=== PATIENT | male | born 1945 | race Caucasian/White ===

== ENCOUNTER → 2020-05-17 | Outpatient (CLI) | payer MEDICARE ==
[~2020-05-17] VITALS: Ht 165.1 cm; Wt 109.3 kg
[~2020-05-17] MED LIST: REGADENOSON 0.4 MG/5 ML PF SYG IVP SCH
== END | disposition home or self-care (01) ==
LOC: SHCH 08:18
PROVIDERS: ATTEND Internal Medicine Cardiovascular Disease
DX: I25.810 Atherosclerosis of coronary artery bypass graft(s) without angina pectoris (principal); R06.09 Other forms of dyspnea
CPT/HCPCS: 78452; 93017; 96374; A9500 ×2; J2785

== ENCOUNTER → 2023-04-28 | Outpatient (CLI) | payer MEDICARE ==
[2023-04-28 17:02] LABS: THYROID STIMULATING HORMONE 1.59 uIU/mL (0.36-3.74)
== END | disposition home or self-care (01) ==
LOC: LAB 15:12
PROVIDERS: ATTEND Internal Medicine Cardiovascular Disease
DX: I25.10 Atherosclerotic heart disease of native coronary artery without angina pectoris (principal); E78.5 Hyperlipidemia, unspecified; Z95.1 Presence of aortocoronary bypass graft; Z79.82 Long term (current) use of aspirin; Z79.899 Other long term (current) drug therapy
CPT/HCPCS: 36415; 84439; 84443

== ENCOUNTER 2023-08-25 06:53 | Emergency (ER) | payer MEDICARE ==
[2023-08-25 08:24] LABS: HEMATOCRIT 37.6 % (42-54); MEAN CORPUSCULAR HEMOGLOBIN 31.4 pg (27.0-33.0); MEAN CORPUSCULAR VOLUME 92.2 fL (79-99); PLATELET COUNT (AUTO) 328 K/uL (130-400); RED BLOOD CELL COUNT(AUTO) 4.08 MIL/uL (4.50-6.20); RED CELL DISTRIBUTION WIDTH 12.9 % (11.0-15.5); WHITE BLOOD COUNT (AUTO) 10.8 K/uL (4.8-10.8)
[2023-08-25 08:31] LABS: INR <= 0.93 (0.85-1.15); PROTHROMBIN TIME 10.9 SEC (9.6-11.6)
[2023-08-25 08:32] LABS: PARTIAL THROMBOPLASTIN TIME 25.8 SEC (26.3-35.5)
[2023-08-25 08:35] LABS: CREATININE 1.2 mg/dL (0.5-1.3); POTASSIUM 4.1 mmol/L (3.5-5.1)
[2023-08-25 08:39] LABS: BASOPHILS # (AUTO) 0.06 K/uL (0.00-0.20); BASOPHILS % (AUTO) 0.6 % (0.0-5.0); EOSINOPHILS % (AUTO) 6.6 % (0.0-8.0); IMMATURE GRANULOCYTE ABSOLUTE 0.03 K/uL (0-1); LYMPHOCYTES # (AUTO) 3.8 K/uL (1.0-4.8); LYMPHOCYTES % (AUTO) 35.8 % (21.0-51.0); MONOCYTES # (AUTO) 0.8 K/uL (0.1-1.0); MONOCYTES % (AUTO) 7.5 % (3.0-13.0); NEUTROPHILS # (AUTO) 5.2 K/uL (1.8-7.7); NEUTROPHILS % (AUTO) 49.2 % (40.0-77.0)
[2023-08-25 08:44] LABS: ALBUMIN 3.6 g/dL (3.5-5.0); BILIRUBIN,TOTAL 0.4 mg/dL (0.2-1.0); TOTAL PROTEIN, SERUM 8.1 g/dL (6.0-8.3)
[2023-08-25 09:19] LABS: ADD UA MICROSCOPIC YES; APPEARANCE,URINE CLEAR (CLEAR); BILIRUBIN,URINE NEGATIVE (NEGATIVE); COLOR,URINE YELLOW (YELLOW); GLUCOSE, URINE (UA) NEGATIVE (NEGATIVE); KETONES,URINE NEGATIVE (NEGATIVE); LEUKOCYTE ESTERASE ,URINE NEGATIVE Leu/uL (NEGATIVE); NITRATE,URINE NEGATIVE (NEGATIVE); OCCULT BLOOD,URINE NEGATIVE (NEGATIVE); PH,URINE 7.5 (5.0-8.0); PROTEIN,URINE 10 mg/dL (NEGATIVE); UROBILINOGEN,URINE 0.2 mg/dL (0.2-1.0)
[2023-08-25 09:20] LABS: RBC,URINE 0-1 /HPF (0-1); SQUAMOUS EPITHELIAL CELL,UR RARE /HPF (0-2); WBC,URINE 0-1 /HPF (0-1)
[2023-08-25] MEDS: CLOPIDOGREL 300MG TAB PO ONE (10:41)
[2023-08-25] MEDS: ASPIRIN 81 MG EC TAB PO ONE (10:41)
[2023-08-25] MEDS ORDERED: ATOR40TA71 PO (21:47)
[2023-08-25] MEDS ORDERED: AEC81 PO (21:47)
[2023-08-25] MEDS ORDERED: METF-910 PO (21:47)
[2023-08-25] MEDS ORDERED: INSU100I26 SQ (21:47)
[2023-08-25] MEDS ORDERED: LORA10TA7 PO (21:47)
[2023-08-25] MEDS ORDERED: FOLI0.8C PO (21:47)
[2023-08-25] MEDS ORDERED: MONT-39 PO (21:47)
[2023-08-25] MEDS ORDERED: GLIP5TAB15 PO (21:47)
[2023-08-25] MEDS ORDERED: CELE200 PO (21:47)
[2023-08-25] MEDS ORDERED: OMEP40CA21 PO (21:47)
[2023-08-25 22:40] VITALS: BP 138/81; PULSE 77; RESP 18; O2SAT 95
== END 2023-08-25 23:14 | disposition short-term general hospital (02) ==
LOC: EDH 06:53
DX: I63.9 Cerebral infarction, unspecified (principal); H54.7 Unspecified visual loss; I10 Essential (primary) hypertension; E11.9 Type 2 diabetes mellitus without complications; E78.00 Pure hypercholesterolemia, unspecified; Z98.890 Other specified postprocedural states
CPT/HCPCS: 36415; 70450; 70551; 71045; 80053; 81001; 82550; 82948; 84484; 85025; 85610; 85730; 93005; 99291

== ENCOUNTER → 2023-10-21 | Outpatient (CLI) | payer MEDICARE ==
[~2023-10-21] MED LIST changes: +AEC81 PO; +ATOR40TA71 PO; +CELE200 PO; +FOLI0.8C PO; +GLIP5TAB15 PO; +INSU100I26 SQ; +LORA10TA7 PO; +METF-910 PO; +MONT-39 PO; +OMEP40CA21 PO; -REGADENOSON 0.4 MG/5 ML PF SYG IVP SCH
== END | disposition home or self-care (01) ==
LOC: LAB 11:10
PROVIDERS: ATTEND Internal Medicine Cardiovascular Disease
DX: I50.22 Chronic systolic (congestive) heart failure (principal)
CPT/HCPCS: 36415; 83880

== ENCOUNTER 2024-08-10 06:52 | Day surgery (SDC) | payer MEDICARE ==
[2024-08-08 12:30] VITALS: BP 147/76; PULSE 103; RESP 20; TEMP 97.2
[2024-08-08 12:30] LABS: BASOPHILS # (AUTO) 0.04 K/uL (0.00-0.20); BASOPHILS % (AUTO) 0.4 % (0.0-5.0); EOSINOPHILS # (AUTO) 0.54 K/uL (0.00-0.70); EOSINOPHILS % (AUTO) 4.9 % (0.0-8.0); HEMATOCRIT 37.2 % (42-54); IMMATURE GRANULOCYTE ABSOLUTE 0.04 K/uL (0-1); LYMPHOCYTES # (AUTO) 3.5 K/uL (1.0-4.8); LYMPHOCYTES % (AUTO) 31.7 % (21.0-51.0); MEAN CORPUSCULAR HEMOGLOBIN 32.3 pg (27.0-33.0); MEAN CORPUSCULAR HGB CONC 33.6 g/dL (32.0-36.0); MEAN CORPUSCULAR VOLUME 96.1 fL (79-99); MONOCYTES # (AUTO) 0.8 K/uL (0.1-1.0); MONOCYTES % (AUTO) 7.1 % (3.0-13.0); NEUTROPHILS # (AUTO) 6.2 K/uL (1.8-7.7); NEUTROPHILS % (AUTO) 55.5 % (40.0-77.0); PLATELET COUNT (AUTO) 368 K/uL (130-400); RED BLOOD CELL COUNT(AUTO) 3.87 MIL/uL (4.50-6.20); RED CELL DISTRIBUTION WIDTH 14.2 % (11.0-15.5); WHITE BLOOD COUNT (AUTO) 11.1 K/uL (4.8-10.8)
[2024-08-08 12:36] LABS: APPEARANCE,URINE CLEAR (CLEAR); BILIRUBIN,URINE NEGATIVE (NEGATIVE); COLOR,URINE DARK-YELLOW (YELLOW); GLUCOSE, URINE (UA) NEGATIVE (NEGATIVE); KETONES,URINE NEGATIVE (NEGATIVE); LEUKOCYTE ESTERASE ,URINE NEGATIVE Leu/uL (NEGATIVE); NITRATE,URINE NEGATIVE (NEGATIVE); OCCULT BLOOD,URINE NEGATIVE (NEGATIVE); PROTEIN,URINE NEGATIVE (NEGATIVE); UROBILINOGEN,URINE 0.2 mg/dL (0.2-1.0)
[2024-08-08 12:37] LABS: CREATININE 1.1 mg/dL (0.5-1.3); POTASSIUM 4.7 mmol/L (3.5-5.1)
[2024-08-08 12:41] LABS: INR 0.97 (0.85-1.15); PROTHROMBIN TIME 10.3 SEC (9.6-11.6)
[2024-08-08 12:42] LABS: PARTIAL THROMBOPLASTIN TIME 25.8 SEC (26.3-35.5)
[2024-08-08 13:06] LABS: B-TYPE NATRIURETIC PEPTIDE 49 pg/mL (0-100)
[2024-08-08 13:07] LABS: ADD UA MICROSCOPIC NO
--- NOTE | 2024-08-09 06:31 | EKG ---
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
--- NOTE | 2024-08-09 09:06 | HMCIMG ---
CHEST 1VW REASON: PREOP COMPARISON: 08/25/2023 FINDINGS: There are increased interstitial markings in both lungs consistent with a component of fibrosis, moderate in degree. This is unchanged since prior studies. There are no superimposed infiltrates. Heart size is normal with no vascular congestion or pleural there has been a previous median sternotomy. IMPRESSION: 1. Moderate pulmonary fibrosis. 2. No interval change, no acute finding.
--- NOTE | 2024-08-09 12:48 | NUR ---
REPORT DR BOLDEN REVIEWED CBC. PT DENIED ANY S/S OF INFECTION. OK TO PROCEED
[2024-08-10] VITALS (11 sets, daily range): BP systolic 113–126; BP diastolic 56–67; PULSE 67–79; RESP 15–19; TEMP 97.2–98
[~2024-08-10] VITALS: Ht 188 cm; Wt 109.4 kg
[~2024-08-10 06:52] MED LIST changes: +ACET-66 PO; -AEC81 PO; +AZEL23SP2 NS; +CALC-884 PO; +CARV12.511 PO; +CETI10CA5 PO; +CINN500C PO; +EMPA25TA PO; +FAMO40TA7 PO; +FERS325 PO; +FLUT16H NASAL; -FOLI0.8C PO; +GUAI120015 PO; -INSU100I26 SQ; +INSU3INS3 SQ; +ISOS60TA77 PO; +KRIL500C PO; -LORA10TA7 PO; +MAGN500C16 PO; +NINT100C PO; +TURMERIC PO; +UBID100T7 PO; +VITA1CAP85 PO; +VITAMIN B12 PO; +VITAMIN B6 PO
[2024-08-10] MEDS ORDERED: LIDOCAINE HCL 400MG/20ML VIAL ONE (08:46)
[2024-08-10] MEDS ORDERED: HEParin-NS 1,000 UNIT/500 ML 1,000 ML IV ONE (08:47)
[2024-08-10] MEDS ORDERED: HEParin 10,000 UNIT/10ML (1,000 UNIT/ML) VIAL ONE (08:47)
[2024-08-10] MEDS ORDERED: NITROGLYCERIN 50MG VIAL ONE (08:47)
[2024-08-10] MEDS ORDERED: FENTanyl CITRate PF 50 MCG/1 ML 2ML VIAL ONE (08:47)
[2024-08-10] MEDS ORDERED: MIDAZOLAM HCL 1 MG/ML 2ML VIAL ONE ×2 (08:48→11:56)
[2024-08-10] MEDS ORDERED: IOHEXOL 350 MG/ML 100ML INFUS..BTL IV ONE ×3 (08:49→11:03)
[2024-08-10] MEDS ORDERED: IOHEXOL-350 50ML VIAL IV ONE (08:56)
[2024-08-10] MEDS ORDERED: HEParin-NS 1,000 UNIT/500 ML 500 ML IV ONE ×3 (09:05→11:52)
[2024-08-10] MEDS ORDERED: BIVALIRUDIN 250 MG/VIAL IV ONE ×3 (10:42→11:42)
[2024-08-10] MEDS ORDERED: ASPIRIN 325MG EC TAB PO ONE (10:42)
[2024-08-10] MEDS ORDERED: cloPIDOgrel 300MG TAB ONE (10:42)
[2024-08-10] MEDS ORDERED: EPTIFIBATIDE 2 MG/ML 10 ML VIAL IVP ONE ×2 (10:49→10:52)
[2024-08-10] MEDS ORDERED: EPTIFIBATIDE 75MG/100ML BOTTLE 100 ML IV ONE (10:49)
[2024-08-10] MEDS ORDERED: DEXTROSE 50%-WATER 50 ML DISP.SYRIN IV PRN (13:30)
[2024-08-10] MEDS ORDERED: GLUCAGON 1MG KIT 1 MG ML IM PRN (13:30)
[2024-08-10] MEDS ORDERED: 0.9%NACL 1000ML 1,000 ML IV SCH (13:30)
--- NOTE | 2024-08-10 13:53 | PRN ---
DATE OF PROCEDURE: 08/10/2024 PROCEDURE PERFORMED: RIGHT AND LEFT HEART CATHETERIZATION, LEFT VENTRICULOGRAM, LEFT AND RIGHT SELECTIVE CORONARY ANGIOGRAM, INJECTION OF SAPHENOUS VEIN GRAFT TO THE PDA (OCCLUDED), INJECTION OF FLEMING GRAFT TO THE LAD WITH SEQUENTIAL SAPHENOUS VEIN GRAFT Y LIMB TO THE OM1 AND OM3 (PATENT FLEMING LAD AND PATENT SAPHENOUS VEIN Y LIMB TO THE OM1 WITH OCCLUDED SEQUENTIAL SAPHENOUS VEIN GRAFT TO THE OM3), PTCA AND STENTING OF THE DISTAL RCA WITH A 3.5 X 12 MM FABRIZIO FRONTIER SAIRA (WITH IVUS TO THE RCA), PTCA AND STENTING OF THE DISTAL LEFT CIRCUMFLEX WITH A 2.25 X 18 FABRIZIO [place]ONTI[place] SAIRA WITH NON DILATABLE PROXIMAL EDGE OF THE STENT REDUCED FROM 80% TO 60%, AND SUCCESSFUL PTCA AND STENTING OF THE PROXIMAL LEFT CIRCUMFLEX WITH A 2.75 X 15 MM FABRIZIO FRONTIER SAIRA, RIGHT COMMON FEMORAL ANGIOGRAM, PERCLOSE SUTURE CLOSURE OF THE RIGHT COMMON FEMORAL ARTERY, WITH CONSCIOUS SEDATION ELECTRONIC DATA INTERCHANGE SPECIALIST: Kateryna Bolden MD, [facility] INDICATION: Pre lung transplant evaluation, dyspnea on exertion, assess for possible . PROCEDURE NOTE: After informed consent was obtained the patient was prepped and draped in the usual sterile fashion. A 6 Iranian arterial sheath was inserted in the right femoral artery using ultrasound guidance and micropuncture technique with a front wall, first pass puncture. A seven Iranian venous sheath was inserted in the right common femoral vein using ultrasound guidance and micropuncture technique. This was performed after fluoroscopic identification of bony landmarks to facilitate a more accurate puncture of the right common femoral artery. The arterial sheath was aspirated and flushed. A seven Iranian Decherd-Belén catheter was advanced to the right heart with pressure measurements in the right heart and PA and pulmonary capillary wedge positions. A 6 Iranian pigtail catheter was then advanced over a J-tipped guidewire to the ascending aorta and was prolapsed into the left ventricle. The catheter was aspirated and flushed and pressure measurements were obtained. A left ventriculogram was then performed in a 30 DURAN projection. A pullback procedure was then performed, and this catheter was removed over a J-tipped guidewire. Simultaneous pressure measurements in the descending thoracic aorta via six Iranian 45 cm sheath and a five Iranian pigtail catheter in the LV were performed. There was a 5 mm peak to peak gradient only. A 6F JL-4 was then advanced to the ascending aorta over a J-tipped guidewire, was aspirated and flushed, and was used for selective left coronary angiograms in multiple obliquities. A JR-4 was advanced in a similar fashion to the ascending aorta over a J-tipped guidewire and was used for selective right coronary angiograms in multiple obliquities with findings as outlined below. The six Iranian JR4 was used for selective injection of an occluded SVG to the PDA, a six Iranian LCB catheter was used for a search for an additional vein graft (there were no additional vein grafts). An IMT six Iranian catheter was used for injection of the FLEMING which was a FLEMING LAD with a wide limb sequential SVG to OM1 and OM3. Findings were as outlined below. A right common femoral angiogram was performed to assess suitability for Perclose suture closure and the Perclose device was deployed in standard fashion. Perclose suture closure was successful without bleeding or hematoma. The patient tolerated the procedure well and was returned to the holding area in stable condition. PERCUTANEOUS CORONARY INTERVENTION: 1. Successful PTCA and stenting of the distal RCA with a 3.5 x 12 fabrizio [place] SAIRA with a IVUS guidance 2. Successful PTCA and stenting of the distal left circumflex with a 2.25 x 18 fabrizio [place] SAIRA with non dilatable proximal edge of the stent despite shockwave at the edge times 40 pulses and despite a 2.75 (oversized balloon) NC Stormer dilated to 21 atmospheres. The distal edge of the stent was reduced from an 80% to a 60% stenosis. 3. Successful PTCA and stenting of the proximal left circumflex, preceded by 80 pulses of shockwave lithotripsy, followed by 2.75 x 15 mm fabrizio [place] FINDINGS: RIGHT HEART CATHETERIZATION: RA pressure 12 mm of mercury A-wave, 8 mm of mercury V-wave, and 8 mm mean RA pressure RV pressure 36/10 mm of mercury PA pressure 36/18 mm of mercury with a 25 mm of mercury mean PA pressure Pulmonary capillary wedge pressure 18 mm of mercury mean Simultaneous LV and pulmonary capillary wedge pressure demonstrated no mitral stenosis.] LEFT HEART HEMODYNAMICS: There was a 5 mm of mercury peak to peak aortic valve gradient. LVEDP was 19 mm of mercury prior to LV-gram in 17 mm of mercury after LV-gram. LEFT VENTRICULOGRAM: Mild inferoapical hypokinesis with LVEF of 60%. 1+ mitral regurgitation. CORONARY ANGIOGRAM: LEFT MAIN: Normal left main coronary. LEFT ANTERIOR DESCENDING: The LAD had a 90% proximal stenosis and a patent FLEMING to the mid LAD with an 80% ongoing apical LAD stenosis. The diagonal branch had a 90% stenosis and was not bypassed. LEFT CIRCUMFLEX: The left circumflex was nondominant with a 95% proximal to mid stenosis at the OM1 bifurcation. The OM1 had a 100% occlusion and the sequential saphenous vein limb from the FLEMING to the OM1 and OM3 was patent to the OM1 but occluded after the OM1 (occluded saphenous vein graft segment between the OM1 and OM3). The distal left circumflex had a 90% stenosis in the OM3 had a 90% proximal stenosis. RAMUS INTERMEDIATE BRANCH: There was no ramus intermediate branch. RIGHT CORONARY ARTERY: The RCA was dominant and had a 99% distal stenosis. The PDA at the mid to distal and had a 95% stenosis but was small distally. IMPRESSION: Aortic valve sclerosis without stenosis with peak to peak 5 mm gradient. No mitral stenosis. 1+ mitral regurgitation. Inferoapical hypokinesis with LVEF of 60%. Severe [place] three-vessel coronary artery disease. 2/4 grafts patent with occluded saphenous vein graft to the PDA and occluded sequential limb saphenous vein graft between the OM1 and OM3. Patent FLEMING to the mid LAD with a patent Y sequential saphenous vein graft to the OM1 which was then occluded after the OM1 as noted above. 1. Successful PTCA and stenting of the distal RCA with a 3.5 x 12 fabrizio [place] SAIRA with a IVUS guidance 2. Successful PTCA and stenting of the distal left circumflex with a 2.25 x 18 fabrizio [place] SAIRA with non dilatable proximal edge of the stent despite shockwave at the edge times 40 pulses and despite a 2.75 (oversized balloon) NC Stormer dilated to 21 atmospheres. The distal edge of the stent was reduced from an 80% to a 60% stenosis. 3. Successful PTCA and stenting of the proximal left circumflex, preceded by 80 pulses of shockwave lithotripsy, followed by 2.75 x 15 mm fabrizio [place] RECOMMENDATION: One year of dual antiplatelet therapy followed by indefinite dual antiplatelet therapy given severe [place] disease or clopidogrel antiplatelet therapy alone. COMPLICATIONS OF PROCEDURE: None, the patient tolerated the procedure well and was returned to his room in stable condition. HEMOSTASIS: Perclose suture closure was successful without bleeding or hematoma. ESTIMATED BLOOD LOSS: 10 mL. CONTRAST TOTAL: 275 mL. KATERYNA BOLDEN MD Aug 10, 2024 13:53
--- NOTE | 2024-08-10 15:03 | NUR ---
RX FOR PLAVIX 75MG PO Q DAILY CALLED INTO [facility] [place]
[2024-08-10] MEDS ORDERED: INSULIN humuLIN R 100 UNIT/ML 3ML SQ SCH (16:30)
== END 2024-08-10 17:15 | disposition home or self-care (01) ==
LOC: DAH 06:52
PROVIDERS: ATTEND Internal Medicine Cardiovascular Disease
DX: I25.118 Atherosclerotic heart disease of native coronary artery with other forms of angina pectoris (principal); I25.718 Atherosclerosis of autologous vein coronary artery bypass graft(s) with other forms of angina pectoris; I08.0 Rheumatic disorders of both mitral and aortic valves; I50.32 Chronic diastolic (congestive) heart failure; I44.0 Atrioventricular block, first degree; E11.9 Type 2 diabetes mellitus without complications; E78.5 Hyperlipidemia, unspecified; Z79.899 Other long term (current) drug therapy; Z79.84 Long term (current) use of oral hypoglycemic drugs; Z79.82 Long term (current) use of aspirin; Z98.41 Cataract extraction status, right eye; Z98.42 Cataract extraction status, left eye; Z98.890 Other specified postprocedural states; Z82.49 Family history of ischemic heart disease and other diseases of the circulatory system; Z88.8 Allergy status to other drugs, medicaments and biological substances; Z87.891 Personal history of nicotine dependence
CPT/HCPCS: 80048; 83880; 85025; 85610; 85730; 81003; 36415; 71045; 93005; 92978; 92972; 93461; 99156; 99157 ×5; 82948; C9600 ×2; Q9965 ×4; C1769 ×4; C1887 ×4; C1894 ×4; C1725 ×3; C1874 ×3; C1760; C1893; C1761; C1753; J3010; J3490 ×2; J1644 ×5; J2250 ×2; J1327 ×3; J0583 ×3; Q9967 ×4; A4615; A4215; A4222; A4221; A4663; A4216; A4606; A4223 ×3; 92979; 96360; 96361; C9601